=== PATIENT | female | born 1935 | race Caucasian/White ===

== ENCOUNTER → 2017-07-12 | Emergency (ER) | payer OTHER ==
[~2017-07-12] VITALS: Ht 162.6 cm; Wt 48.5 kg
== END | disposition home or self-care (01) ==
LOC: ER 21:25
DX: R53.1 Weakness (principal)

== ENCOUNTER 2018-08-01 09:39 | Outpatient (CLI) | payer OTHER | END 2018-08-01 09:43 | disposition home or self-care (01) | LOC: SONOGRAMA 09:39 | DX: E04.8 Other specified nontoxic goiter (principal); E03.8 Other specified hypothyroidism ==